=== PATIENT | female | born 1980 | race Hispanic/Latino ===

== ENCOUNTER 2017-01-31 14:10 | Emergency (ER) | payer OTHER ==
[2017-01-31 14:10] VITALS: BMI 38.0
[2017-01-31 14:31] VITALS: TEMP 97.7
--- NOTE | 2017-01-31 14:39 | ED PDOC ---
Arrival/HPI - General Chief Complaint: Back Pain Time Seen by Provider: 01/31/17 14:26 Historian: Patient - History of Present Illness Time/Duration: Other (2 days) Symptom Onset: Sudden Symptom Course: Worsening Quality: Aching Severity Level: Severe Activities at Onset: Rest Associated Symptoms (Text): 01/31/17 14:37 Patient reports that 2 days prior to arrival she was driving and developed acute onset of left flank pain. Some radiation into her groin. She has urinary frequency, but no dysuria or hematuria. No fever or chills. No injury or trauma. No nausea vomiting or diarrhea. She's never experienced this previously. LMP was 1 week ago. Past Medical History - Past History Past History: No Previous - Infectious Disease Hx of Infectious Diseases: None - Tetanus Immunization Tetanus Immunization: Unknown - Cardiac Hx Cardiac Disorders: No - Pulmonary Hx Respiratory Disorders: No - Neurological Hx Neurological Disorder: No - HEENT Hx HEENT Disorder: No - Renal Hx Renal Disorder: No - Endocrine/Metabolic Hx Endocrine Disorders: No - Hematological/Oncological Hx Blood Disorders: No - Integumentary Hx Dermatological Disorder: No - Musculoskeletal/Rheumatological Hx Musculoskeletal Disorders: No - Gastrointestinal Hx Gastrointestinal Disorders: No - Genitourinary/Gynecological Hx 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) - Psychiatric Hx Anxiety: Yes Hx Substance Use: No - Surgical History Hx Section: Yes (x1) - Anesthesia Hx Anesthesia: Yes Hx Anesthesia Reactions: No Hx Malignant Hyperthermia: No - Suicidal Assessment Feels Threatened In Home Enviroment: No Family/Social History - Physician Review Nursing Documentation Reviewed: Yes Family/Social History: Unknown Family HX Smoking Status: Never Smoked Hx Alcohol Use: No Hx Substance Use: No Hx Substance Use Treatment: No Allergies/Home Meds Allergies/Adverse Reactions: Allergies codeine Allergy (Verified 01/31/17 14:30) ANAPHYLAXIS Review of Systems - Physician Review All systems were reviewed & negative as marked: Yes - Review of Systems Constitutional: Normal Respiratory: Normal Cardiovascular: Normal Gastrointestinal: Normal Genitourinary Female: Frequency. absent: Dysuria, Hematuria, Vaginal Bleeding, Vaginal Discharge Neurological: Normal Physical Exam Vital Signs Temp Pulse Resp BP Pulse Ox 01/31/17 14:25 97.7 F 87 17 124/80 99 Temperature: Afebrile Blood Pressure: Normal Pulse: Regular Respiratory Rate: Normal Appearance: Positive for: Well-Appearing, Non-Toxic, Uncomfortable, Other (Obese ) Pain Distress: Mild Mental Status: Positive for: Alert and Oriented X 3 - Systems Exam Head: Present: Atraumatic, Normocephalic Pupils: Present: PERRL Extroacular Muscles: Present: EOMI Conjunctiva: Present: Normal Mouth: Present: Moist Mucous Membranes Pharnyx: No: ERYTHEMA, EXUDATE, TONSILS ENLARGED Neck: Present: Normal Range of Motion Respiratory/Chest: Present: Clear to Auscultation, Good Air Exchange. No: Respiratory Distress, Accessory Muscle Use Cardiovascular: Present: Regular Rate and Rhythm, Normal S1, S2. No: Murmurs Abdomen: Present: Tenderness (Mild left upper quadrant tenderness), Normal Bowel Sounds, Other (Mild left CVA tenderness). No: Distention, Peritoneal Signs, Rebound, Guarding Back: Present: Normal Inspection, CVA Tenderness. No: Midline Tenderness, Paraspinal Tenderness, Pain with Leg Raise Upper Extremity: Present: Normal Inspection. No: Cyanosis, Edema Lower Extremity: Present: Normal Inspection. No: Edema Neurological: Present: GCS=15, CN II-XII Intact, Speech Normal, Motor Func Grossly Intact Skin: Present: Warm, Dry, Normal Color. No: Rashes Psychiatric: Present: Alert, Oriented x 3, Normal Insight, Normal Concentration Medical Decision Making ED Course and Treatment: 01/31/17 15:17 Patient is refusing pain medication at this time. She reports that she has been taking ibuprofen with some improvement. 01/31/17 16:18 Blood and urine testing along with CT scan are unrevealing. Patient has been getting improvement with ibuprofen. Will be treated as a musculoskeletal problem. Follow-up with PMD. - Lab Interpretations Lab Results: 01/31/17 15:11 01/31/17 15:11 Lab Results 01/31/17 15:11: Sodium 142, Potassium 4.1, Chloride 107, Carbon Dioxide 28, Anion Gap 10, BUN 13, Creatinine 0.8, Est GFR ( Amer) > 60, Est GFR (Non- Af Amer) > 60, Random Glucose 87, Calcium 9.2, Total Bilirubin 0.9, AST 18, ALT 34, Alkaline Phosphatase 56, Total Protein 6.9, Albumin 3.8, Globulin 3.0, Albumin/Globulin Ratio 1.3, Lipase 112 01/31/17 15:11: Urine Color Yellow, Urine Appearance Clear, Urine pH 6.0, Ur Specific [place] 1.025, Urine Protein Negative, Urine Glucose (UA) Negative, Urine Ketones Trace H, Urine Blood Negative, Urine Nitrate Negative, Urine Bilirubin Negative, Urine Urobilinogen 1.0 H, Ur Leukocyte Esterase Negative, Urine HCG, Qual Negative 01/31/17 15:11: WBC 5.0 D, RBC 4.49, Hgb 13.7, Hct 40.6, MCV 90.4, MCH 30.5, MCHC 33.7, RDW 12.9, Plt Count 190, MPV 11.0, Gran % 59.6, Lymph % (Auto) 31.2, [place] % (Auto) 6.0, Eos % (Auto) 3.0, Baso % (Auto) 0.2, Gran # 2.98, Lymph # 1.6 , [place] # 0.3, Eos # 0.2, Baso # 0.01 I have reviewed the lab results: Yes - RAD Interpretation Radiology Orders: 01/31/17 14:57 ABD & PELVIS W/O PO OR IV CONT [CT] Stat CT of the abdomen and pelvis is read by the radiologist is positive for gallstone, otherwise within normal limits. No nephrolithiasis. Arranging Funeral Director: Radiologist Disposition/Present on Arrival - Present on Arrival Any Indicators Present on Arrival: No History of DVT/PE: No History of Uncontrolled Diabetes: No Urinary Catheter: No History of Decub. Ulcer: No History Surgical Site Infection Following: None - Disposition Have Diagnosis and Disposition been Completed?: Yes Diagnosis: Back pain Disposition: HOME/ ROUTINE Disposition Time: 16:19 Patient Plan: Discharge Condition: GOOD Discharge Instructions (ExitCare): Back Pain (ED) Additional Instructions: Rest and moist heat. Follow-up with PMD. Follow up in ER as needed. Prescriptions: Naproxen [Naprosyn] 500 mg PO BID #14 tab Referrals: Nick Matute MD [Primary Care Provider] - Follow up with primary Forms: [employer] (Mexican)
[2017-01-31 15:16] LABS: BASO # 0.01 K/mm3 (0.0-2.0); BASO % 0.2 % (0.0-3.0); EOS # 0.2 (0.0-0.7); GRAN # 2.98 (1.4-6.5); GRAN % 59.6 % (50.0-68.0); HEMATOCRIT 40.6 % (36.0-48.0); LYMPH # 1.6 (1.2-3.4); LYMPH % 31.2 % (22.0-35.0); MEAN CELL VOLUME 90.4 fl (80.0-105.0); MEAN CORPUSCULAR HEMOGLOBIN 30.5 pg (25.0-35.0); MEAN CORPUSCULAR HGB CONC 33.7 g/dl (31.0-37.0); MONO # 0.3 (0.1-0.6); RED CELL DISTRIBUTION WIDTH 12.9 % (11.5-14.5)
[2017-01-31 15:17] LABS: URINE BILIRUBIN NEGATIVE (NEGATIVE); URINE BLOOD NEGATIVE (NEGATIVE); URINE GLUCOSE (UA) NEGATIVE (NEGATIVE); URINE KETONE TRACE mg/dL (NEGATIVE); URINE LEUKOCYTE ESTERASE NEGATIVE Leu/uL (NEGATIVE); URINE PROTEIN NEGATIVE mg/dL (<30 mg/dL)
[2017-01-31 15:22] LABS: URINE APPEARANCE CLEAR (CLEAR); URINE COLOR YELLOW (YELLOW)
[2017-01-31 15:42] LABS: ALB/GLOB RATIO 1.3 (1.1-1.8); ALKALINE PHOSPHATASE 56 U/L (38-126); ALT/SGPT 34 U/L (7-56); AST/SGOT 18 U/L (14-36); BILIRUBIN,TOTAL 0.9 mg/dL (0.2-1.3); BLOOD UREA NITROGEN 13 mg/dL (7-21); CALCIUM 9.2 mg/dL (8.4-10.5); CARBON DIOXIDE 28 mmol/L (21-33); CHLORIDE 107 mmol/L (98-107); GFR AFRICAN-AMERICAN > 60; GLUCOSE,RANDOM 87 mg/dL (70-110); LIPASE 112 U/L (23-300); POTASSIUM 4.1 mmol/L (3.6-5.0); SODIUM 142 mmol/L (132-148); TOTAL PROTEIN 6.9 g/dL (5.8-8.3)
--- NOTE | 2017-01-31 16:02 | CT ---
PROCEDURE: CT Abdomen and Pelvis without intravenous contrast HISTORY: left flank pain COMPARISON: None. TECHNIQUE: Without contrast.. Contrast Dose: Radiation dose: Total exam DLP = 1198 mGy-cm. This CT exam was performed using one or more of the following dose reduction techniques: Automated exposure control, adjustment of the mA and/or kV according to patient size, and/or use of iterative reconstruction technique. FINDINGS: LOWER THORAX: Unremarkable. LIVER: Unremarkable. No gross lesion or ductal dilatation. GALLBLADDER AND BILE DUCTS: 2.5 cm stone in the gallbladder PANCREAS: Unremarkable. No gross lesion or ductal dilatation. SPLEEN: Unremarkable. ADRENALS: Unremarkable. No mass. KIDNEYS AND URETERS: Unremarkable. No hydronephrosis. No solid mass. VASCULATURE: Unremarkable. No aortic aneurysm. BOWEL: Unremarkable. No obstruction. No gross mural thickening. APPENDIX: Unremarkable. Normal appendix. PERITONEUM: Unremarkable. No free fluid. No free air. LYMPH NODES: Unremarkable. No enlarged lymph nodes. BLADDER: Unremarkable. REPRODUCTIVE: Unremarkable. BONES: No acute fracture. OTHER FINDINGS: None. IMPRESSION: Large gallstone. No acute intra-abdominal finding
[2017-01-31 16:48] VITALS: BP 148/87; PULSE 69; RESP 16; O2SAT 100
== END 2017-01-31 16:44 | disposition home or self-care (01) ==
LOC: ED 14:10
DX: M54.9 Dorsalgia, unspecified (principal)

== ENCOUNTER 2017-02-07 17:16 | Inpatient (IN) | payer OTHER ==
[2017-02-07 17:31] VITALS: BMI 36.1
[2017-02-07] MEDS ORDERED: Alum-Mag Hydrox-Simethicone Susp (30 mL) PO STA (17:33)
[2017-02-07] MEDS ORDERED: Morphine 4 mg/ml ISec IVP STA (17:33)
--- NOTE | 2017-02-07 17:37 | ED PDOC ---
Arrival/HPI - General Chief Complaint: Abdominal Pain Time Seen by Provider: 02/07/17 17:32 Historian: Patient - History of Present Illness Narrative History of Present Illness (Text): 02/07/17 17:37 A 36 year old female, whose past medical history includes gallstones, presents to the emergency department complaining of onset acute right side abdominal pain. Patient reports she ate a Hot Pocket for breakfast and afterwards began experiencing pain with associated nausea. Patient mentions taking sodium bicarbonates and Tumms, but had no relief of symptoms. Denies of any fever, chills, vomiting, diarrhea, chest pain, shortness of breath, cough, dysuria, hematuria, urinary frequency, or any other complaints at this time. PMD: Dr. Nick Matute Past Medical History - Provider Review Nursing Documentation Reviewed: Yes - Past History Past History: No Previous - Infectious Disease Hx of Infectious Diseases: None - Tetanus Immunization Tetanus Immunization: Unknown - Reproductive Menopause: No - Cardiac Hx Cardiac Disorders: No - Pulmonary Hx Respiratory Disorders: No - Neurological Hx Neurological Disorder: No - HEENT Hx HEENT Disorder: No - Renal Hx Renal Disorder: No - Endocrine/Metabolic Hx Endocrine Disorders: No - Hematological/Oncological Hx Blood Disorders: No - Integumentary Hx Dermatological Disorder: No - Musculoskeletal/Rheumatological Hx Musculoskeletal Disorders: No - Gastrointestinal Hx Gastrointestinal Disorders: No - Genitourinary/Gynecological Hx 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) - Psychiatric Hx Anxiety: Yes Hx Substance Use: No - Surgical History Hx Section: Yes (x1) - Anesthesia Hx Anesthesia: Yes Hx Anesthesia Reactions: No Hx Malignant Hyperthermia: No - Suicidal Assessment Feels Threatened In Home Enviroment: No Family/Social History - Physician Review Nursing Documentation Reviewed: Yes Family/Social History: No Known Family HX Smoking Status: Never Smoked Hx Alcohol Use: No Hx Substance Use: No Hx Substance Use Treatment: No Allergies/Home Meds Allergies/Adverse Reactions: Allergies codeine Allergy (Verified 01/31/17 14:30) ANAPHYLAXIS Home Medications: Home Meds Medication Instructions Recorded Confirmed No Known Home Med 02/07/17 02/07/17 Review of Systems - Physician Review All systems were reviewed & negative as marked: Yes - Review of Systems Constitutional: absent: Fevers, Night Sweats Respiratory: absent: SOB, Cough Cardiovascular: absent: Chest Pain Gastrointestinal: Abdominal Pain (right-side abdominal pain), Nausea. absent: Diarrhea, Vomiting Genitourinary Female: absent: Dysuria, Frequency, Hematuria Musculoskeletal: absent: Back Pain, Neck Pain Physical Exam Vital Signs Reviewed: Yes Vital Signs Temp Pulse Resp BP Pulse Ox 02/07/17 17:28 97.8 F 85 18 138/65 100 Temperature: Afebrile Blood Pressure: Normal Pulse: Regular Respiratory Rate: Normal Appearance: Positive for: Well-Appearing Pain Distress: None Mental Status: Positive for: Alert and Oriented X 3 - Systems Exam Head: Present: Atraumatic, Normocephalic Pupils: Present: PERRL Extroacular Muscles: Present: EOMI Conjunctiva: Present: Normal Mouth: Present: Moist Mucous Membranes Neck: Present: Normal Range of Motion Respiratory/Chest: Present: Clear to Auscultation, Good Air Exchange. No: Respiratory Distress, Accessory Muscle Use Cardiovascular: Present: Regular Rate and Rhythm, Normal S1, S2. No: Murmurs Abdomen: Present: Tenderness (RUQ tenderness) Back: Present: Normal Inspection Upper Extremity: Present: Normal Inspection. No: Cyanosis, Edema Lower Extremity: Present: Normal Inspection. No: Edema Neurological: Present: GCS=15, CN II-XII Intact, Speech Normal Skin: Present: Warm, Dry, Normal Color. No: Rashes Psychiatric: Present: Alert, Oriented x 3, Normal Insight, Normal Concentration Medical Decision Making ED Course and Treatment: 02/07/17 17:37 EKG shows sinus tachycardia at 102bpm with normal intervals and no st changes 02/07/2017 18:47 Abdominal Ultrasound IMPRESSION: Cholelithiasis. Positive sonographic Barrios's sign as assessed by the representative. No evidence of gallbladder wall thickening or pericholecystic edema. Correlate clinically. Borderline hepatomegaly. Echogenic liver may be seen in setting of hepatic parenchymal disease or fatty infiltration. Dictator: Liliana Mcduffie MD 02/07/17 19:32 Lfts elevated when compared to 4 days ago. Surgery consulted and will be on consult - Lab Interpretations Lab Results: 02/07/17 17:45 02/07/17 17:45 Lab Results 02/07/17 17:45: Sodium 142, Potassium 3.7, Chloride 105, Carbon Dioxide 24, Anion Gap 16, BUN 10, Creatinine 0.8, Est GFR ( Amer) > 60, Est GFR (Non- Af Amer) > 60, Random Glucose 99, Calcium 9.7, Total Bilirubin 1.8 H, AST 108 H D, ALT 82 H, Alkaline Phosphatase 88, Total Protein 7.2, Albumin 4.1, Globulin 3.0, Albumin/Globulin Ratio 1.4, Lipase 183 02/07/17 17:45: Urine Color Yellow, Urine Appearance Clear, Urine pH 8.5, Ur Specific [place] 1.015, Urine Protein Negative, Urine Glucose (UA) Negative, Urine Ketones Negative, Urine Blood Negative, Urine Nitrate Negative, Urine Bilirubin Negative, Urine Urobilinogen 2.0 H, Ur Leukocyte Esterase Negative 02/07/17 17:45: WBC 8.1 D, RBC 4.50, Hgb 13.7, Hct 40.3, MCV 89.6, MCH 30.4, MCHC 34.0, RDW 12.8, Plt Count 203, MPV 10.8, Gran % 74.2 H, Lymph % (Auto) 18.0 L, [place] % (Auto) 7.1 H, Eos % (Auto) 0.6 L, Baso % (Auto) 0.1, Gran # 5.98 , Lymph # 1.5, [place] # 0.6, Eos # 0.1, Baso # 0.01 I have reviewed the lab results: Yes - RAD Interpretation Radiology Orders: 02/07/17 17:33 CHEST PORTABLE [RAD] Stat ABDOMEN COMPLETE [US] Stat - Medication Orders Current Medication Orders: Ceftriaxone Sodium 1,000 mg/ (Sodium Chloride) 50 mls @ 100 mls/hr IVPB Q24H JOSSELYN PRN Reason: Protocol Discontinued Medications Al Hydrox/Mg Hydrox/Simethicone (Maalox Plus 30 Ml) 30 ml PO STAT STA Stop: 02/07/17 17:34 Last Admin: 02/07/17 17:49 Dose: 30 ml Famotidine (Pepcid) 20 mg IVP STAT STA Stop: 02/07/17 17:34 Last Admin: 02/07/17 17:50 Dose: 20 mg IVP Administration Document 02/07/17 17:50 [facility] (Rec: 02/07/17 17:[address] [facility]-[id number]) Charges for Administration # of IVP Administrations 1 Metronidazole (Flagyl) 500 mg in 100 mls @ 100 mls/hr IVPB STAT STA PRN Reason: Protocol Stop: 02/07/17 21:39 Ketorolac Tromethamine (Toradol) 30 mg IVP STAT STA Stop: 02/07/17 17:34 Last Admin: 02/07/17 17:49 Dose: 30 mg MAR Pain Assessment Document 02/07/17 17:49 [facility] (Rec: 02/07/17 17:[address] [facility]-[id number]) Pain Reassessment Is this a pain reassessment? No Presence of Pain Presence of Pain Yes IVP Administration Document 02/07/17 17:49 [facility] (Rec: 02/07/17 17:[address] [facility]-[id number]) Charges for Administration # of IVP Administrations 1 Morphine Sulfate (Morphine) 4 mg IVP STAT STA Stop: 02/07/17 17:34 Last Admin: 02/07/17 17:50 Dose: 4 mg MAR Pain Assessment Document 02/07/17 17:50 [facility] (Rec: 02/07/17 17:[address] [facility]-[id number]) Pain Reassessment Is this a pain reassessment? Yes Presence of Pain Presence of Pain Yes IVP Administration Document 02/07/17 17:50 [facility] (Rec: 02/07/17 17:[address] [facility]-[id number]) Charges for Administration # of IVP Administrations 1 - Scribe Statement The provider has reviewed the documentation as recorded by the Genaro Yip Provider Scribe Attestation: All medical record entries made by the [employer] were at my direction and personally dictated by me. I have reviewed the chart and agree that the record accurately reflects my personal performance of the history, physical exam, medical decision making, and the department course for this patient. I have also personally directed, reviewed, and agree with the discharge instructions and disposition. Disposition/Present on Arrival - Present on Arrival Any Indicators Present on Arrival: No History of DVT/PE: No History of Uncontrolled Diabetes: No Urinary Catheter: No History of Decub. Ulcer: No History Surgical Site Infection Following: None - Disposition Have Diagnosis and Disposition been Completed?: Yes Diagnosis: Gallstones, Elevated liver function tests Disposition: HOSPITALIZED Disposition Time: 19:00 Patient Plan: Admission Condition: FAIR
[2017-02-07 18:06] LABS: PH,URINE 8.5 (4.7-8.0); URINE BILIRUBIN NEGATIVE (NEGATIVE); URINE BLOOD NEGATIVE (NEGATIVE); URINE GLUCOSE (UA) NEGATIVE (NEGATIVE); URINE KETONE NEGATIVE (NEGATIVE); URINE LEUKOCYTE ESTERASE NEGATIVE Leu/uL (NEGATIVE); URINE PROTEIN NEGATIVE mg/dL (<30 mg/dL)
[2017-02-07 18:10] LABS: BASO # 0.01 K/mm3 (0.0-2.0); BASO % 0.1 % (0.0-3.0); EOS # 0.1 (0.0-0.7); EOS % 0.6 % (1.5-5.0); GRAN # 5.98 (1.4-6.5); GRAN % 74.2 % (50.0-68.0); HEMATOCRIT 40.3 % (36.0-48.0); LYMPH # 1.5 (1.2-3.4); MEAN CELL VOLUME 89.6 fl (80.0-105.0); MEAN CORPUSCULAR HEMOGLOBIN 30.4 pg (25.0-35.0); MEAN PLATELET VOLUME 10.8 fl (7.0-11.0); MONO # 0.6 (0.1-0.6); MONO % 7.1 % (1.0-6.0); RED CELL DISTRIBUTION WIDTH 12.8 % (11.5-14.5); URINE APPEARANCE CLEAR (CLEAR); URINE COLOR YELLOW (YELLOW); WHITE BLOOD COUNT 8.1 10^3/ul (4.5-11.0)
[2017-02-07 18:23] LABS: ALB/GLOB RATIO 1.4 (1.1-1.8); ALKALINE PHOSPHATASE 88 U/L (38-126); ALT/SGPT 82 U/L (7-56); AST/SGOT 108 U/L (14-36); BILIRUBIN,TOTAL 1.8 mg/dL (0.2-1.3); BLOOD UREA NITROGEN 10 mg/dL (7-21); CALCIUM 9.7 mg/dL (8.4-10.5); CARBON DIOXIDE 24 mmol/L (21-33); CHLORIDE 105 mmol/L (98-107); GFR AFRICAN-AMERICAN > 60; GLUCOSE,RANDOM 99 mg/dL (70-110); LIPASE 183 U/L (23-300); POTASSIUM 3.7 mmol/L (3.6-5.0); SODIUM 142 mmol/L (132-148); TOTAL PROTEIN 7.2 g/dL (5.8-8.3)
--- NOTE | 2017-02-07 18:49 | US ---
HISTORY: RUQ pain COMPARISON: Abdominal ultrasound performed 12/03/14, CT abdomen and pelvis with contrast performed 01/31/17 TECHNIQUE: Sonographic evaluation of the abdomen. FINDINGS: LIVER: Measures approximately 19.8 cm. Echogenic liver may be seen in setting of hepatic parenchymal disease or fatty infiltration. No focal hepatic mass identified. The main portal vein appears patent with normal directional flow. No intrahepatic bile duct dilatation. GALLBLADDER: 1.9 cm gallstone. No gallbladder wall thickening. Positive sonographic Barrios's sign as assessed by the nut feeder. COMMON BILE DUCT: Measures 5 mm. PANCREAS: Not well visualized. RIGHT KIDNEY: Measures 10.4 x 4.8 x 4.7cm. No obstructing calculus or hydronephrosis identified. LEFT KIDNEY: Measures 10.4 x 4.2 x 5.1cm. No obstructing calculus or hydronephrosis identified. SPLEEN: Measures approximately 10.3 cm. AORTA: Limited views appear unremarkable. IVC: Limited views appear unremarkable. OTHER FINDINGS: None. IMPRESSION: Cholelithiasis. Positive sonographic Barrios's sign as assessed by the nut feeder. No evidence of gallbladder wall thickening or pericholecystic edema. Correlate clinically. Borderline hepatomegaly. Echogenic liver may be seen in setting of hepatic parenchymal disease or fatty infiltration.
[2017-02-07] MEDS ORDERED: metroNIDAZOLE IV 500 mg/100 ml 500 MG/100 ML BAG IVPB STA (20:40)
[2017-02-07] MEDS ORDERED: cefTRIAXone 1,000 MG in Sodium Chloride 0.9% 50 ML IVPB SCH (20:45)
--- NOTE | 2017-02-07 21:22 | CP.PCM.CON ---
History of Present Illness - History of Present Illness History of Present Illness: General Surgery Consult for Dr. Bowen Reason for consult: cholelithiasis and abdominal pain 36 F with past medical history of gallstones presents to [facility] with complaint of right sided abdominal pain. Patient states pain has been present since early in the day when she ate a Hot Pocket for breakfast. Pain developed shortly afterwards. He reports associated nausea. Patient was in the ED last week for similar complaint. She was discharged and instructed to take antacids as needed. She has been intermittently taking Tumms, but had no relief of symptoms. She rates pain as moderate. She describes it as intermittent and sharp located in RUQ/epigastric region. Eating somtimes exacerbates her pain while nothing specifically aleviates it. Denies fever/chills, vomiting, diarrhea , chest pain, shortness of breath, cough. PMD: Dr. Nick Matute PMH: Gallstones Meds: Denies Allergy: Codeine PSH: Denies FH: mother and grandmother had gallstones Social: denies tobacco/EtOH/illicit drug use Review of Systems - Review of Systems All systems: reviewed and no additional remarkable complaints except (nausea, abdominal pain) Past Patient History - Infectious Disease Hx of Infectious Diseases: None - Tetanus Immunizations Tetanus Immunization: Unknown - Past Social History Smoking Status: Never Smoked - CARDIAC Hx Cardiac Disorders: No - PULMONARY Hx Respiratory Disorders: No - NEUROLOGICAL Hx Neurological Disorder: No - HEENT Hx HEENT Problems: No - RENAL Hx Chronic Kidney Disease: No - ENDOCRINE/METABOLIC Hx Endocrine Disorders: No - HEMATOLOGICAL/ONCOLOGICAL Hx Blood Disorders: No - INTEGUMENTARY Hx Dermatological Problems: No - MUSCULOSKELETAL/RHEUMATOLOGICAL Hx Musculoskeletal Disorders: No - GASTROINTESTINAL Hx Gastrointestinal Disorders: No - GENITOURINARY/GYNECOLOGICAL Hx 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) - PSYCHIATRIC Hx Anxiety: Yes Hx Substance Use: No - SURGICAL HISTORY Hx Section: Yes (x1) - ANESTHESIA Hx Anesthesia: Yes Hx Anesthesia Reactions: No Hx Malignant Hyperthermia: No Meds Allergies/Adverse Reactions: Allergies Allergy/AdvReac Type Severity Reaction Status Date / Time codeine Allergy ANAPHYLAXIS Verified 01/31/17 14:30 - Medications Medications: Current Medications Metronidazole (Flagyl) 500 mg in 100 mls @ 100 mls/hr IVPB STAT STA PRN Reason: Protocol Stop: 02/07/17 21:39 Ceftriaxone Sodium 1,000 mg/ (Sodium Chloride) 50 mls @ 100 mls/hr IVPB Q24H JOSSELYN PRN Reason: Protocol Physical Exam - Constitutional Appears: Well, Non-toxic, No Acute Distress - Head Exam Head Exam: ATRAUMATIC, NORMOCEPHALIC - Eye Exam Eye Exam: EOMI, Normal appearance Pupil Exam: PERRL - ENT Exam ENT Exam: Mucous Membranes Moist - Respiratory Exam Respiratory Exam: NORMAL BREATHING PATTERN - Cardiovascular Exam Cardiovascular Exam: REGULAR RHYTHM - GI/Abdominal Exam GI & Abdominal Exam: Soft. absent: Distended, Firm, Guarding, Rebound, Rigid, Tenderness Additional comments: (-) sparks's sign - Extremities Exam Extremities exam: Positive for: normal capillary refill, pedal pulses present. Negative for: calf tenderness - Back Exam Back exam: absent: CVA tenderness (L), CVA tenderness (R) - Neurological Exam Neurological exam: Alert, CN II-XII Intact, Oriented x3 - Psychiatric Exam Psychiatric exam: Normal Affect, Normal Mood - Skin Skin Exam: Dry, Intact, Normal Color, Warm Results - Vital Signs Recent Vital Signs: Last Vital Signs Temp 97.8 F 02/07/17 17:28 Pulse 85 02/07/17 17:28 Resp 18 02/07/17 17:28 BP 138/65 02/07/17 17:28 Pulse Ox 100 02/07/17 17:28 - Labs Result Diagrams: 02/07/17 17:45 02/07/17 17:45 Assessment & Plan - Assessment and Plan (Free Text) Plan: 36 F with Cholelithiasis and abdominal pain -NPO -Continue IV fluids -Analgesics/Anti-emetics PRN -Will Discuss with Dr. Andrés Rubin PGY1
[2017-02-07] MEDS ORDERED: HYDROmorphone 1 mg/ml ISec IVP PRN (23:30)
[2017-02-07] MEDS ORDERED: Dextrose 5%/0.45% NS 1,000 ML IV SCH (23:30)
[2017-02-08 07:18] LABS: HEMATOCRIT 36.7 % (36.0-48.0); MEAN CORPUSCULAR HEMOGLOBIN 30.1 pg (25.0-35.0); MEAN CORPUSCULAR HGB CONC 33.5 g/dl (31.0-37.0); MEAN PLATELET VOLUME 10.8 fl (7.0-11.0); RED CELL DISTRIBUTION WIDTH 13.1 % (11.5-14.5); WHITE BLOOD COUNT 4.7 10^3/ul (4.5-11.0)
[2017-02-08 08:01] LABS: ALB/GLOB RATIO 1.3 (1.1-1.8); ALKALINE PHOSPHATASE 73 U/L (38-126); ALT/SGPT 94 U/L (7-56); AST/SGOT 59 U/L (14-36); BILIRUBIN,TOTAL 0.8 mg/dL (0.2-1.3); BLOOD UREA NITROGEN 10 mg/dL (7-21); CALCIUM 8.5 mg/dL (8.4-10.5); CARBON DIOXIDE 23 mmol/L (21-33); CHLORIDE 110 mmol/L (98-107); GFR AFRICAN-AMERICAN > 60; GLUCOSE,RANDOM 97 mg/dL (70-110); TOTAL PROTEIN 6.1 g/dL (5.8-8.3)
--- NOTE | 2017-02-08 08:07 | RAD ---
HISTORY: abdominal pain COMPARISON: 12/03/2014 FINDINGS: LUNGS: No active pulmonary disease. PLEURA: No significant pleural effusion identified, no pneumothorax apparent. CARDIOVASCULAR: Normal. OSSEOUS STRUCTURES: No significant abnormalities. VISUALIZED UPPER ABDOMEN: Normal. OTHER FINDINGS: None. IMPRESSION: No active disease.
[2017-02-08 08:41] LABS: INR 1.1 (0.93-1.08); PARTIAL THROMBOPLASTIN TIME 28.9 Seconds (25.1-36.5)
[2017-02-08 08:45] LABS: POTASSIUM 3.6 mmol/L (3.6-5.0); SODIUM 140 mmol/L (132-148)
[2017-02-08] MEDS ORDERED: Bupivacaine 0.5% Inj(30mL) ONE (09:09)
[2017-02-08] MEDS ORDERED: HYDROmorphone 0.5 mg/0.5 ml ISec IVP PRN ×2 (09:26→09:49)
[2017-02-08] MEDS ORDERED: Lactated Ringer's 1,000 ML IV SCH (09:30)
[2017-02-08] MEDS ORDERED: Iohexol 240 (50 ml) ONE (09:34)
[2017-02-08] MEDS ORDERED: Propofol 10 mg/ml Inj (20 ML) ONE (09:40)
[2017-02-08] MEDS ORDERED: Midazolam 2 MG/2 ML VIAL ONE (09:40)
[2017-02-08] MEDS ORDERED: Rocuronium 10 mg/ml (5 ml) ONE (09:40)
[2017-02-08] MEDS ORDERED: cefTRIAXone (Rocephin) 1 gm Inj ONE (10:15)
--- NOTE | 2017-02-08 10:54 | CARD ---
APPROVED REPORT EKG Measurement Heart Alds632BYTS [place] [id number] <Conclusion> Sinus tachycardia Otherwise normal ECG
[2017-02-08] MEDS ORDERED: Glycopyrrolate 0.2 mg/ml (2ml vial) ONE (11:24)
[2017-02-08] MEDS ORDERED: Neostigmine Methylsulfate 3mg/3ml Syringe IV ONE (11:24)
--- NOTE | 2017-02-08 12:03 | PCM.SURG1 ---
Surgeon's Initial Post Op Note - Surgeon's Notes Surgeon: Dr. Bowen Personnel Monitor: Samantha Flores PGY2, PGY3 Type of Anesthesia: General Endo Pre-Operative Diagnosis: cholelithiasis Operative Findings: large gallstone 2cm Post-Operative Diagnosis: Same Operation Performed: Laparoscopic cholecystectomy Specimen/Specimens Removed: gallbladder, gallstone Estimated Blood Loss: EBL {In ML}: 10 Blood Products Given: N/A Drains Used: No Drains Post-Op Condition: Good Date of Surgery/Procedure: 02/08/17 Time of Surgery/Procedure: 12:02
[2017-02-08] MEDS ORDERED: HYDROmorphone 0.5 mg/0.5 ml ISec ONE (12:33)
[2017-02-08] MEDS ORDERED: HYDROmorphone 0.5 mg/0.5 ml ISec IVP ONE (12:33)
[2017-02-08 13:25] LABS: FOLATE 8.8 ng/mL
[2017-02-08] MEDS ORDERED: Morphine 2 mg/ml ISec IVP PRN ×2 (16:36→18:58)
[2017-02-08 18:19] VITALS: RESP 20
[2017-02-08] MEDS ORDERED: Morphine 2 mg/ml ISec IVP STA (18:57)
[2017-02-08] MEDS ORDERED: WATER IVPB SCH (20:45)
[2017-02-08] MEDS ORDERED: CEFTRIAXONE IVPB SCH (20:45)
[2017-02-08] MEDS ORDERED: DEXTROSE 5% IVPB SCH (20:45)
--- NOTE | 2017-02-09 02:10 | CON ---
DATE: 02/08/2017 REASON FOR CONSULTATION: Abdominal pain, abnormal LFTs, gallstones. HISTORY OF PRESENT ILLNESS: This is a 36-year-old patient with past medical history of gallstones, anxiety, history of migraine, admitted with acute onset of right-sided abdominal pain. She said that she had hot pancakes for breakfast and after that, she experienced some discomfort and nausea; later the symptoms progressed and it got worse. She said this is about the second episode of this similar discomfort. She is known to have gallstones. ALLERGIES: SHE IS ALLERGIC TO CODEINE. SURGICAL HISTORY: Denies any surgical history. FAMILY HISTORY: Noncontributory except mother and grandmother had a history of gallstones. SOCIAL HISTORY: Denies smoking or drugs. REVIEW OF SYSTEMS: Positive as above. Other systems reviewed. PHYSICAL EXAMINATION: VITAL SIGNS: Temperature is 97.7, pulse 108, blood pressure is 142/73, respirations 20, O2 saturation 100%. HEENT: Atraumatic, anicteric. NECK: Supple. HEART: S1, S2 heard. LUNGS: Bilateral air entry present. ABDOMEN: Soft. There is some minimal to mild tenderness on deep palpation in the epigastric and right upper quadrant area. There is no rebound or guarding. EXTREMITIES: No edema. No cyanosis. NEUROLOGIC: Alert, oriented. Moves all the extremities. LABORATORY DATA: Hemoglobin 12.3, hematocrit 36.7, WBC 4.7, platelets 189. Chemistry shows total bilirubin yesterday was 1.8, it has come down to 0.8. AST was 108 and now has come down to 59, and ALT also 82, now it is ____. Ultrasound scan of the abdomen shows gallstones with common bile duct only 5 mm. IMPRESSION: This is a 36-year-old patient with history of known gallstones, admitted with abdominal pain, mainly in the right upper quadrant area. The patient did have mildly elevated LFTs which is showing an improving trend. Total bilirubin has come down. CBD measured only 5 mm. Symptomatic gallstones, biliary colic. It is reasonable to consider cholecystectomy; however, the patient in view of the mildly elevated LFTs and which is showing downward trend, she may have passed the stone. CBD measured only 5 mm. Discussed with the surgical team. I suggested intraoperative cholangiogram as the cholecystectomy was planned today. Discussed with the patient and also the patient's who was at bedside at length, and also with the president sales and marketing prior to the procedure. Thank you very much for allowing us to participate in the care of the patient. Naa Arevalo MD
[2017-02-09 08:12] VITALS: BP 132/68; PULSE 94; TEMP 99.3; O2SAT 100
[2017-02-09] MEDS ORDERED: Naproxen 550 mg Tab PO SCH (10:45)
--- NOTE | 2017-02-09 11:10 | CP.PCM.PN ---
<Ifeoma Sandoval - Last Filed: 02/09/17 11:09> Subjective - Date & Time of Evaluation Date of Evaluation: 02/09/17 Time of Evaluation: 10:25 - Subjective Subjective: S&E at bedside, chart reviewed. POD # 1 s/p lap cholecystectomy. Able to eat solids this am, no postprandial abdominal pain, Nausea is improved. No fever, chills or Sob or chest pain, no BM yest. No flatus. Objective - Vital Signs/Intake and Output Vital Signs (last 24 hours): Temp Pulse Resp BP Pulse Ox 99.3 F 94 H 20 132/68 100 02/09/17 07:30 02/09/17 07:30 02/09/17 07:30 02/09/17 07:30 02/09/17 07:30 Intake and Output: 02/09/17 02/09/17 06:59 18:59 Intake Total 180 Balance 180 - Medications Medications: Current Medications Hydromorphone HCl (Dilaudid) 0.5 mg IVP Q15M PRN PRN Reason: Pain, severe (8-10) Last Admin: 02/08/17 12:18 Dose: 0.5 mg Ceftriaxone Sodium 1,000 mg/ (Dextrose) 100 mls @ 100 mls/hr IVPB Q24H JOSSELYN PRN Reason: Protocol Last Admin: 02/08/17 20:57 Dose: 100 mls/hr Morphine Sulfate (Morphine) 4 mg IVP Q4H PRN PRN Reason: Pain, severe (8-10) Last Admin: 02/08/17 22:29 Dose: 4 mg Naproxen (Anaprox Ds) 550 mg PO BID JOSSELYN Ondansetron HCl (Zofran Inj) 4 mg IVP Q6H PRN PRN Reason: Nausea/Vomiting Last Admin: 02/08/17 19:06 Dose: 4 mg Ondansetron HCl (Zofran Inj) 4 mg IVP ONCE PRN PRN Reason: Nausea/Vomiting Tramadol HCl (Ultram) 50 mg PO TID PRN PRN Reason: Pain, Mild (1-3) Last Admin: 02/09/17 08:04 Dose: 50 mg - Labs Labs: 02/08/17 06:30 02/08/17 06:45 PT 12.1 SECONDS (9.4-12.5) 02/08/17 08:15 INR 1.10 (0.93-1.08) H 02/08/17 08:15 APTT 28.9 Seconds (25.1-36.5) 02/08/17 08:15 - Constitutional Appears: No Acute Distress - Eye Exam Eye Exam: Normal appearance. absent: Scleral icterus - ENT Exam ENT Exam: Mucous Membranes Moist - Neck Exam Neck Exam: Normal Inspection - Respiratory Exam Respiratory Exam: NORMAL BREATHING PATTERN. absent: Respiratory Distress - Cardiovascular Exam Cardiovascular Exam: +S1, +S2 - GI/Abdominal Exam GI & Abdominal Exam: Soft, Tenderness (difuss tenderness, lap sites are dry and intact , no eyrthema), Normal Bowel Sounds. absent: Guarding, Rebound - Extremities Exam Extremities Exam: absent: Calf Tenderness, Pedal Edema - Neurological Exam Neurological Exam: Alert, Awake, Oriented x3 - Skin Skin Exam: Dry, Warm Assessment and Plan - Assessment and Plan (Free Text) Assessment: ASSESSMENT: Abdominal pain Elevated FLT, improving Cholelithiasis s/p Laparscopic cholecystectomy PLAN: soft lowfat diet, computer programmer analyst FU trend lft, cmp,cbc pending continue PPI on IV antibiotics pain mgt as per surgery Seen and discussed w/ Dr. Arevalo. <Naa Arevalo V - Last Filed: 02/09/17 21:09> Objective - Vital Signs/Intake and Output Vital Signs (last 24 hours): Temp Pulse Resp BP Pulse Ox 99.3 F 94 H 20 132/68 100 02/09/17 07:30 02/09/17 07:30 02/09/17 07:30 02/09/17 07:30 02/09/17 07:30 - Labs Labs: 02/09/17 11:13 02/09/17 11:13 PT 12.1 SECONDS (9.4-12.5) 02/08/17 08:15 INR 1.10 (0.93-1.08) H 02/08/17 08:15 APTT 28.9 Seconds (25.1-36.5) 02/08/17 08:15 Attending/Attestation - Attestation I have personally seen and examined this patient.: Yes I have fully participated in the care of the patient.: Yes I have reviewed all pertinent clinical information, including history, physical exam and plan: Yes Notes (Text): This is an addendum to GI progress report dictated by Ifeoma Sandoval APN.The patient was seen and examined earlier. Medical records, lab studies, imagings were reviewed. Last 24 hours events reviewed. Agreed with the above treatment plan as outlined in Ifeoma Sandoval APN's notes the with the addition of the following complaints of discomfort at the site of trocar surgical incision Tolerating the diet LFT shows a downward trend Discussed with the Dr. Bowen Planned for discharge today 02/09/17 21:08
[2017-02-09] MEDS ORDERED: HYDROmorphone 1 mg/ml ISec IVP PRN (11:15)
[2017-02-09 11:16] LABS: BASO # 0.01 K/mm3 (0.0-2.0); BASO % 0.1 % (0.0-3.0); EOS % 0.1 % (1.5-5.0); GRAN # 10.81 (1.4-6.5); GRAN % 82.4 % (50.0-68.0); HEMATOCRIT 38.1 % (36.0-48.0); LYMPH # 1.3 (1.2-3.4); LYMPH % 10.1 % (22.0-35.0); MEAN CELL VOLUME 91.4 fl (80.0-105.0); MEAN CORPUSCULAR HEMOGLOBIN 30.2 pg (25.0-35.0); MEAN CORPUSCULAR HGB CONC 33.1 g/dl (31.0-37.0); MEAN PLATELET VOLUME 10.5 fl (7.0-11.0); MONO % 7.3 % (1.0-6.0); RED CELL DISTRIBUTION WIDTH 13.1 % (11.5-14.5); WHITE BLOOD COUNT 13.1 10^3/ul (4.5-11.0)
[2017-02-09] MEDS ORDERED: Pantoprazole 20 mg EC Tab PO SCH (11:30)
--- NOTE | 2017-02-09 11:30 | CP.PCM.PN ---
Subjective - Date & Time of Evaluation Date of Evaluation: 02/09/17 Time of Evaluation: 11:25 - Subjective Subjective: Surgery Progress note for Dr. Bowen Pt seen and examined at bedside. No acute overnight events. Pt states that Ultram does not last very long and feels tired when taking it. Pt tolerating diet. Pt admits to pain at surgical sites. Pt denied CP, SOB, nausea, vomiting, diarrhea, consitpation, RAHMAN, fever, or chills. Objective - Vital Signs/Intake and Output Vital Signs (last 24 hours): Temp Pulse Resp BP Pulse Ox 99.3 F 94 H 20 132/68 100 02/09/17 07:30 02/09/17 07:30 02/09/17 07:30 02/09/17 07:30 02/09/17 07:30 Intake and Output: 02/09/17 02/09/17 06:59 18:59 Intake Total 180 Balance 180 - Medications Medications: Current Medications Naproxen (Anaprox Ds) 550 mg PO BID [facility] Last Admin: 02/09/17 11:09 Dose: 550 mg Pantoprazole Sodium (Protonix Ec Tab) 20 mg PO 0600 [facility] Last Admin: 02/09/17 11:24 Dose: 20 mg Tramadol HCl (Ultram) 50 mg PO TID PRN PRN Reason: Pain, Mild (1-3) Last Admin: 02/09/17 08:04 Dose: 50 mg - Labs Labs: 02/09/17 11:13 02/08/17 06:45 PT 12.1 SECONDS (9.4-12.5) 02/08/17 08:15 INR 1.10 (0.93-1.08) H 02/08/17 08:15 APTT 28.9 Seconds (25.1-36.5) 02/08/17 08:15 - Constitutional Appears: No Acute Distress - Head Exam Head Exam: NORMAL INSPECTION - Eye Exam Eye Exam: Normal appearance - ENT Exam ENT Exam: Normal Exam - Respiratory Exam Respiratory Exam: NORMAL BREATHING PATTERN. absent: Accessory Muscle Use, Respiratory Distress - Cardiovascular Exam Cardiovascular Exam: RRR. absent: Gallop, Rubs, Murmur - GI/Abdominal Exam GI & Abdominal Exam: Soft, Tenderness (at surgical incision sites). absent: Distended, Guarding, Rebound - Rectal Exam Additional comments: Incisions c/d/i without erythema or discharge - Extremities Exam Extremities Exam: Normal Inspection - Back Exam Back Exam: NORMAL INSPECTION - Neurological Exam Neurological Exam: Alert, Awake, Oriented x3 - Skin Skin Exam: Dry, Intact, Normal Color, Warm Assessment and Plan - Assessment and Plan (Free Text) Assessment: 36 yo F presented with RUQ pain is s/p cholecystectomy POD #1 Plan: - Naproxen for pain - Advance diet as tolerated - Clear from surgical standpoint if LFTs improved and pain is controlled - F/u with Dr. Bowen in clinic in 1 week - Will DW Dr. Andrés De, PGY1
[2017-02-09 13:32] LABS: POTASSIUM 4.2 mmol/L (3.6-5.0)
[2017-02-09 13:33] LABS: ALT/SGPT 85 U/L (7-56)
[2017-02-09] MEDS ORDERED: Naproxen 550 mg Tab PO PRN (14:27)
[2017-02-09 16:40] LABS: ALB/GLOB RATIO 1.3 (1.1-1.8); ALKALINE PHOSPHATASE 69 U/L (38-126); AST/SGOT 36 U/L (14-36); BILIRUBIN,TOTAL 0.9 mg/dL (0.2-1.3); BLOOD UREA NITROGEN 8 mg/dL (7-21); CALCIUM 9.3 mg/dL (8.4-10.5); CARBON DIOXIDE 26 mmol/L (21-33); CHLORIDE 108 mmol/L (98-107); GFR AFRICAN-AMERICAN > 60; GLUCOSE,RANDOM 89 mg/dL (70-110); SODIUM 141 mmol/L (132-148)
--- NOTE | 2017-02-11 09:42 | OP ---
PROCEDURE DATE: 02/08/2017 PREOPERATIVE DIAGNOSIS: Acute on chronic cholecystitis. POSTOPERATIVE DIAGNOSIS: Acute on chronic cholecystitis. PROCEDURE: Laparoscopic cholecystectomy and attempted cholangiogram. SURGEON: Fabien Bowen MD DESCRIPTION OF PROCEDURE: In the operating room, patient was identified by name, name of procedure, laterality, my kenia, and her wrist band number. In the operating room, the abdomen was prepped and draped waiting for the appropriate length of time. Start time-out was completed. The abdomen was entered through a supraumbilical incision. Veress needle was inserted followed by the Visi-Port. The opening pressure of the needle was about 5 and 2.5 liters were given to a pressure of about 4. These were placed followed by xiphoid 5s and two lateral 5s. The fundus and the infundibulum were pulled up nicely exposing the end of the gallbladder. The peritoneum was pulled down exposing the cystic duct and artery rather readily. The cystic artery was somewhat posterior. Cystic duct was cleaned. Clip was placed on the gallbladder. After the view of safety was permanently identified by dividing the peritoneum on the lateral ends of the gallbladder liver very nicely. We were unable to advance the catheter, as the cystic duct started to rip, cystic duct was doubly clipped and divided, as was the artery. Gallbladder was taken off the liver bed using the cautery, placed in the bag and removed through the umbilicus. The bag itself ripped requiring another bag that came out very nicely. A large stone was seen, this was removed. The abdomen was then copiously irrigated and dried. There was no bleeding, no bile, and there was no associated damage to any of the structures. The abdomen been cleaned. The CO2 was removed. There was no bleeding. The umbilicus was closed with a #1 Vicryl on a needle and a mattress stitch. The patient was taken to the recovery room in good condition after sponge, needle, and counts were correct. Fabien Bowen MD [facility]
== END 2017-02-09 16:30 | disposition home or self-care (01) | DRG 419 ==
LOC: ED 17:16 → ERH 20:27 → 5RNO 22:48
PROVIDERS: ADMIT Internal Medicine; ATTEND Internal Medicine
PROC: 0FT44ZZ Resection of Gallbladder, Percutaneous Endoscopic Approach (ICD-10-PCS; principal; 2017-02-08 09:00)
DX: K80.10 Calculus of gallbladder with chronic cholecystitis without obstruction (principal); R40.2412 Glasgow coma scale score 13-15, at arrival to emergency department; Z87.892 Personal history of anaphylaxis; Z88.5 Allergy status to narcotic agent